=== PATIENT | female | born 1985 | race Caucasian/White ===

== ENCOUNTER 2017-08-11 21:16 | Emergency (ER) | payer OTHER ==
[~2017-08-11] VITALS: Ht 162.6 cm; Wt 68.0 kg
[~2017-08-11 21:16] MED LIST: ANTIDEPRESSANT
[2017-08-11] MEDS ORDERED: GABA400 PO (21:29)
[2017-08-11] MEDS ORDERED: BACL10 PO (21:30)
[2017-08-11] MEDS ORDERED: RISP.25 PO ×2 (21:31→21:32)
[2017-08-11] MEDS ORDERED: Oxcarbazepine600 MG PO (21:33)
[2017-08-11] MEDS ORDERED: Keppra1000 MG PO (21:33)
[2017-08-11] MEDS ORDERED: Vimpat200 MG PO (21:34)
[2017-08-11] MEDS ORDERED: HEARTBURN RELI150 M1 PO (21:35)
[2017-08-11] MEDS ORDERED: CHOL10002 PO (21:35)
[2017-08-11] MEDS ORDERED: Colace100 MG PO (21:36)
[2017-08-11] MEDS ORDERED: PROTRIPTYLINE PO (23:08)
[2017-08-11 23:32] LABS: BASOPHILS ABSOLUTE AUTO 0.05 K/mm3 (0.00-0.23); BASOPHILS PERCENT AUTO 1 % (0-2); EOSINOPHILS ABSOLUTE AUTO 0.14 K/mm3 (0.00-0.68); EOSINOPHILS PERCENT AUTO 2 % (0-6); Hematocrit 37.8 % (33.0-51.0); Hemoglobin 13.8 g/dL (11.5-16.0); IMMATURE GRAN ABSOLUTE AUTO 0.02 K/mm3 (0.00-0.10); IMMATURE GRAN PERCENT AUTO 0 % (0-1); LYMPHOCYTES ABSOLUTE AUTO 1.23 K/mm3 (0.84-5.20); LYMPHOCYTES PERCENT AUTO 14 % (21-46); MONOCYTES ABSOLUTE AUTO 0.91 K/mm3 (0.16-1.47); MONOCYTES PERCENT AUTO 11 % (4-13); Mean Corpuscular HGB 32.1 pg (26.0-34.0); Mean Corpuscular HGB Conc 36.5 g/dL (31.5-36.5); Mean Corpuscular Volume 88 fL (80-100); Mean Platelet Volume 9.8 fL (9.1-12.4); NEUTROPHILS ABSOLUTE AUTO 6.23 K/mm3 (1.96-9.15); NEUTROPHILS PERCENT AUTO 73 % (41-73); Platelet Count 242 K/mm3 (150-400); RDW Coefficient Variation 11.1 % (11.7-14.2); RDW Standard Deviation 35.6 fL (35.1-46.3); White Blood Cell Count 8.58 K/mm3 (4.00-11.30)
[2017-08-11 23:41] LABS: Anion Gap 9 mmol/L (6-16); Blood Urea Nitrogen 11 mg/dL (8-24); Bun/Creatinine Ratio 15.1 (12.0-20.0); CO2, Blood 24 mmol/L (21-32); Calcium, Blood 8.2 mg/dL (8.5-10.1); Chloride, Blood 100 mmol/L (98-108); Creatinine, Blood 0.73 mg/dL (0.40-1.00); Glomerular Filtration Rate >60 (60-); Glucose, Blood 121 mg/dL (70-99); Potassium, Blood 4.2 mmol/L (3.5-5.5); Sodium, Blood 133 mmol/L (136-145)
== END 2017-08-12 01:25 | disposition home or self-care (01) ==
LOC: ER 21:16
PROVIDERS: Emergency Medicine
DX: G40.909 Epilepsy, unspecified, not intractable, without status epilepticus (principal); Z79.899 Other long term (current) drug therapy
CPT/HCPCS: 80048; 80177; 85025; 99283; J7030

== ENCOUNTER → 2020-10-26 | Outpatient (CLI) | payer OTHER ==
[~2020-10-26] MED LIST changes: +BACL10 PO; +CHOL10002 PO; +Colace100 MG PO; +GABA400 PO; +HEARTBURN RELI150 M1 PO; +Keppra1000 MG PO; +Oxcarbazepine600 MG PO; +PROTRIPTYLINE PO; +RISP.25 PO; +Vimpat200 MG PO
== END | disposition home or self-care (01) ==
LOC: LAB 16:32 → LAB SHORT 16:32
DX: R31.9 Hematuria, unspecified (principal)
CPT/HCPCS: 87086

== ENCOUNTER → 2021-01-08 | Outpatient (CLI) | payer OTHER | END | disposition home or self-care (01) | LOC: LAB SHORT 17:49 → LAB 17:49 | DX: N39.0 Urinary tract infection, site not specified (principal) | CPT/HCPCS: 87077; 87086; 87186 ==